=== PATIENT | female | born 1995 | race Caucasian/White ===

== ENCOUNTER 2018-07-18 07:44 | Inpatient (IN) | payer MEDICAID ==
[~2018-07-18 07:44] MED LIST: METOCLOPRAMIDE 10 MG INJ
[2018-07-18] MEDS ORDERED: CARBOPROST 250 MCG INJ IM ×2 (08:30→12:30)
[2018-07-18] MEDS ORDERED: OXYTOCIN 30 UNITS/LR 500 ML IV ×2 (08:30→12:30)
[2018-07-18] MEDS ORDERED: METHYLERGONOVINE 0.2 MG INJ IM ×2 (08:30→12:30)
[2018-07-18] MEDS ORDERED: MISOPROSTOL 200 MCG TAB PR ×2 (08:30→12:30)
[2018-07-18 08:48] LABS: ADD MAN DIFF? NO
[2018-07-18 08:51] LABS: WHITE BLOOD COUNT 6.1 10^3/ul (4.8-10.8)
[2018-07-18 08:51] LABS: BASOPHILS % 0.3 % (0.0-2.0); EOSINOPHILS # 0.1 10^3/ul (0.0-0.5); EOSINOPHILS % 0.8 % (0.0-7.0); HEMATOCRIT 34.1 % (37.0-47.0); HEMOGLOBIN 11.4 g/dl (12.0-16.0); LYMPHOCYTES # 1.5 10^3/ul (0.8-2.9); LYMPHOCYTES % 24.6 % (15.0-51.0); MEAN CORPUSCULAR HEMOGLOBIN 29.8 pg (29.0-33.0); MEAN CORPUSCULAR HGB CONC 33.4 g/dl (32.0-37.0); MEAN CORPUSCULAR VOLUME 89.3 fl (82.0-101.0); MEAN PLATELET VOLUME 11.9 fl (7.4-10.4); MONOCYTE # 0.5 10^3/ul (0.3-0.9); MONOCYTES % 8.8 % (0.0-11.0); NEUTROPHILS % 64.4 % (39.0-77.0); PLATELET COUNT 202 10^3/UL (140-415); RED BLOOD COUNT 3.82 10^6/ul (4.20-5.40); RED CELL DISTRIBUTION WIDTH 13.7 % (11.5-14.5)
[2018-07-18] MEDS: LACTATED RINGER'S 1,000 ML IV ×2 (09:02→16:39)
[2018-07-18 09:07] LABS: INR 0.93; PROTIME 12.6 Sec (11.9-14.9)
[2018-07-18 09:08] LABS: PARTIAL THROMBOPLASTIN TIME 28.6 Sec (23.0-35.0)
[2018-07-18 09:56] LABS: HEPATITIS B SURFACE ANTIGEN NEGATIVE (NEGATIVE)
[2018-07-18] MEDS ORDERED: BUPIVACAINE 0.75%/DEXT (SPINAL) 2 ML INJ (10:44)
[2018-07-18] MEDS ORDERED: morphine SULFATE/PF (10 MG/10 ML) INJ (10:45)
[2018-07-18] MEDS ORDERED: OXYTOCIN 10 UNIT INJ (11:16)
[2018-07-18] MEDS ORDERED: MIDAZOLAM 1 MG/ML 2 ML INJ (11:18)
[2018-07-18] MEDS ORDERED: ONDANSETRON 4 MG INJ (11:18)
[2018-07-18] MEDS ORDERED: ZOLPIDEM 5 MG TAB PO (12:00)
[2018-07-18] MEDS ORDERED: MIDAZOLAM 1 MG/ML 2 ML INJ IV (12:00)
[2018-07-18] MEDS ORDERED: DIPHENHYDRAMINE 50 MG INJ IV ×2 (12:00)
[2018-07-18] MEDS: ONDANSETRON 4 MG INJ IV ×2 (12:00→17:41)
[2018-07-18] MEDS ORDERED: HYDROmorphONE 0.5 MG/0.5 ML SYG IV ×2 (12:00)
[2018-07-18] MEDS ORDERED: MEPERIDINE 25 MG INJ IV (12:00)
[2018-07-18] MEDS ORDERED: NALBUPHINE HCL (10 MG/1 ML) INJ IV (12:00)
[2018-07-18] MEDS ORDERED: NALOXONE (0.4 MG/ML) INJ IV (12:00)
[2018-07-18] MEDS: DEXTROSE 5%-LR 1,000 ML IV ×2 (12:23→20:23)
[2018-07-18] MEDS: OXYTOCIN 30 UNITS/LR 500 ML IV ×2 (12:23→12:41)
[2018-07-18] MEDS ORDERED: METHYLERGONOVINE 0.2 MG TAB PO (12:30)
[2018-07-18] MEDS: KETOROLAC 30 MG INJ IV (16:40)
[2018-07-18 20:31] LABS: RAPID PLASMA REAGIN NONREACTIVE (NR)
[2018-07-18] MEDS: SENNA/DOCUSATE NA (8.6MG/50MG) TAB PO (21:00)
[2018-07-19] MEDS: LACTATED RINGER'S 1,000 ML IV ×4 (00:22→16:22)
[2018-07-19] MEDS: KETOROLAC 30 MG INJ IV (00:23)
[2018-07-19] MEDS: DEXTROSE 5%-LR 1,000 ML IV ×3 (04:23→23:52)
[2018-07-19 08:24] LABS: ADD MAN DIFF? NO
[2018-07-19 08:27] LABS: WHITE BLOOD COUNT 8.9 10^3/ul (4.8-10.8)
[2018-07-19 08:27] LABS: BASOPHILS % 0.2 % (0.0-2.0); EOSINOPHILS % 0.2 % (0.0-7.0); HEMATOCRIT 29.1 % (37.0-47.0); HEMOGLOBIN 9.8 g/dl (12.0-16.0); LYMPHOCYTES % 11.6 % (15.0-51.0); MEAN CORPUSCULAR HEMOGLOBIN 30.2 pg (29.0-33.0); MEAN CORPUSCULAR HGB CONC 33.7 g/dl (32.0-37.0); MEAN CORPUSCULAR VOLUME 89.8 fl (82.0-101.0); MEAN PLATELET VOLUME 11.9 fl (7.4-10.4); MONOCYTE # 0.7 10^3/ul (0.3-0.9); MONOCYTES % 8.1 % (0.0-11.0); NEUTROPHILS % 79.2 % (39.0-77.0); PLATELET COUNT 155 10^3/UL (140-415); RED BLOOD COUNT 3.24 10^6/ul (4.20-5.40); RED CELL DISTRIBUTION WIDTH 13.7 % (11.5-14.5)
[2018-07-19] MEDS: SENNA/DOCUSATE NA (8.6MG/50MG) TAB PO (09:29)
[2018-07-19] MEDS ORDERED: HYDROCODONE/APAP (5/325) TAB NGT (11:00)
[2018-07-19] MEDS: HYDROCODONE/APAP (5/325) TAB GTB (13:44)
[2018-07-19] MEDS: IBUPROFEN 800 MG TAB PO (13:44)
[2018-07-19] MEDS: LANOLIN 7 GM TUBE TOP (19:17)
[2018-07-19] MEDS: CEFAZOLIN 2 GM/50 ML (PMX) 50 ML IVPB (20:02)
[2018-07-20] MEDS: LACTATED RINGER'S 1,000 ML IV (03:51)
[2018-07-20] MEDS: HYDROCODONE/APAP (5/325) TAB GTB ×4 (06:40→21:50)
[2018-07-20] MEDS: IBUPROFEN 800 MG TAB PO ×4 (06:40→21:50)
[2018-07-20] MEDS: SENNA/DOCUSATE NA (8.6MG/50MG) TAB PO ×3 (10:14→21:50)
[2018-07-20] MEDS: DIPHTH/TET/ACEL PERTUSS (ADULT) 0.5 ML VIAL IM* (11:00)
[2018-07-20] MEDS ORDERED: DIPHTH/TET/ACEL PERTUSS (ADULT) 0.5 ML VIAL IM* (11:30)
[2018-07-21] MEDS: IBUPROFEN 800 MG TAB PO ×2 (05:46→14:49)
[2018-07-21] MEDS: HYDROCODONE/APAP (5/325) TAB GTB ×2 (05:46→14:49)
[2018-07-21] MEDS: MEASLES,MUMPS,RUBELLA VACCINE INJ SC* (09:00)
[2018-07-21] MEDS: SENNA/DOCUSATE NA (8.6MG/50MG) TAB PO (09:59)
[2018-07-21] MEDS: DIPHTH/TET/ACEL PERTUSS (ADULT) 0.5 ML VIAL IM* (11:59)
== END 2018-07-21 17:00 | disposition home or self-care (01) | DRG 785 ==
LOC: L-D 07:44 → PP1 18:10
PROVIDERS: Obstetrics & Gynecology
PROC: 10D00Z1 Extraction of Products of Conception, Low, Open Approach (ICD-10-PCS; principal; 2018-07-18 09:00)
PROC: 0UL70ZZ Occlusion of Bilateral Fallopian Tubes, Open Approach (ICD-10-PCS; 2018-07-18 09:00)
DX: O34.211 Maternal care for low transverse scar from previous cesarean delivery (principal); Z30.2 Encounter for sterilization; Z3A.39 39 weeks gestation of pregnancy; Z37.0 Single live birth
CPT/HCPCS: 85025; 85610; 85730; 86592; 86850; 86900; 86901; 87340; 88302; 90686; 90715; 99464